=== PATIENT | female | born 1965 | race Caucasian/White ===

== ENCOUNTER → 2018-06-28 13:20 | Outpatient (CLI) | payer OTHER, SELFPAY ==
[2018-06-28 10:17] VITALS: BMI 37.3
== END ==
PROVIDERS: Referring Provider Physician Assistant; Visit Provider Physician Assistant
DX: N61.1 Abscess of the breast and nipple (principal)
CPT/HCPCS: 87070; 87075; 87077; 87205

== ENCOUNTER → 2018-07-13 14:04 | Outpatient (CLI) | payer OTHER, SELFPAY ==
[2018-06-28 10:17] VITALS: BMI 37.3
--- NOTE | 2018-07-13 14:12 | BI_ITS ---
MAMMOGRAPHY - BILATERAL DIAGNOSTIC REASON FOR EXAM: Female, 53 years old. History of a left abscess/infection following a prior needle biopsy. PERTINENT HISTORY: Non-contributory. TECHNIQUE: Digital bilateral breast elian (3D mammographic acquisition) in the CC and MLO projections. 2-D mediolateral oblique (MLO) and craniocaudad (CC) views of both breasts were obtained. CAD: Full Field Digital Mammography with Computer Added Detection was performed. COMPARISON: Comparison is made with prior outside examination dated July 13, 2017. FINDINGS: Breast Composition: The breasts are heterogeneously dense, which may obscure small masses. There are no dominant masses or suspicious calcifications. A tissue clip marker is seen in the retroareolar region of the left breast. At that site, there is evidence of the soft tissue swelling of the areola and surrounding skin. Clinical correlation is recommended. Stable left axillary lymph node with a fatty hilum. No other significant abnormalities are identified. BI/DIAG MAMM W/CAD, BILAT IMPRESSION: The nodule is evidence of thickening of the areolar complex and surrounding skin. Correlation with ultrasound is recommended. ASSESSMENT CATEGORY: BIRADS Category 0: Incomplete. Need additional imaging evaluation. A letter regarding these results will be sent to the patient by the facility within 30 days. Approximately 10% of breast cancers are not detected by mammography. A normal mammogram should not delay biopsy of a clinically suspicious abnormality. Electronically Signed: Hever Tatum MD at 15:43 EST Tel [phone], Service support ,
--- NOTE | 2018-07-13 14:13 | US_ITS ---
STUDY: ULTRASOUND BREAST - LEFT REASON FOR EXAM: Female, 53 years old. Palpable lump left breast. History of infection and prior drainage. TECHNIQUE: Axial and longitudinal images of the LEFT breast were performed with a high resolution ultrasound transducer. COMPARISON: Comparison is made with prior mammogram done earlier in the day. FINDINGS: LEFT Breast: There is a 3.5 mm x 3.3 mm x 1 mm area of thickening just inferior to the nipple. This corresponds to the mammographic abnormality. This may represent a focal area of edema. A biopsy may be indicated for further evaluation. US/Breast Limited Unilateral IMPRESSION: Focal area of thickening just inferior to the nipple corresponding to the palpable abnormality and sonographic abnormality. Tissue sampling is recommended. ASSESSMENT CATEGORY: BIRADS Category 2: Benign. A letter regarding these results will be sent to the patient by the facility within 30 days. Electronically Signed: Hever Tatum MD at 15:55 EST Tel [phone], Service support ,
== END ==
PROVIDERS: Referring Provider Obstetrics & Gynecology; Visit Provider Obstetrics & Gynecology
DX: N63.42 Unspecified lump in left breast, subareolar (principal)
CPT/HCPCS: 76642; 77062; 77066; G0279

== ENCOUNTER → 2018-08-08 13:33 | Outpatient (CLI) | payer OTHER, SELFPAY ==
[2018-08-02 13:22] VITALS: BMI 37.3
--- NOTE | 2018-08-08 | BRBX_PTH ---
PATIENT: AYDEE BISHOP LOC: [facility] U#:[id number] AGE/SX: 59/F ROOM: RE08/08/[address]: Dr. Guanako Reddy MD : 1965 BED: DIS: SPEC #: [id number] RECD: 08/08/18 14:50 STATUS: IAINSarahi [place] #: [id number] KATERINA: 08/08/18 00:[address]: Guanako Reddy DEPT: SURGICAL PATHOLOGY RECD BY: Elieser Lomeli ENTERED: 08/08/18 14:51 SP TYPE: BREAST BX OTHR DR: No Primary Care Phys Tissues: Left breast, NOS Procedures: Surgery Specimen Level IV HEADER OPERATION: Left breast biopsy PRE-OP DIAGNOSIS: Breast nodule / thickening TISSUE SUBMITTED: Skin thickening 6 o'clock left breast status post infection ISCHEMIC TIME: 1 minute FIXATION TIME: 5.5 hours MICROSCOPIC DIAGNOSIS Left breast, skin thickening 6 o'clock, core biopsy: Fragments of benign breast tissue with focal dense fibrosis and periductal chronic inflammation. Negative for atypia or malignancy. WES:pilar 08/09/18 COMMENT Correlation with clinical findings and appropriate follow up are necessary. MICROSCOPIC DESCRIPTION Slides are reviewed. GROSS DESCRIPTION Received in fixative is one container labeled with the patient's name and designated left breast. The specimen consists of multiple elongated fragments of inman-yellow fibroadipose tissue that in aggregate measure 1.5 x 0.7 x 0.1 cm. The entire specimen is submitted in one cassette. / WES:pilar 08/08/18 TC:5 CPT: 56731
--- NOTE | 2018-08-08 13:37 | US_ITS ---
STUDY: ULTRASOUND BREAST - LEFT REASON FOR EXAM: Female, 53 years old. Ultrasound guided left breast biopsy. TECHNIQUE: Axial and longitudinal images of the LEFT breast were performed with a high resolution ultrasound transducer. COMPARISON: Comparison is made with prior ultrasound of the left breast dated July 13, 2018. FINDINGS: LEFT Breast: Under direct sonographic guidance, the surgeon performed 4 core biopsies of the soft tissue density just deep to the skin at the 6:00 position of the breast. US/US Breast Biopsy 1st Lesion IMPRESSION: Successful core biopsy of the soft tissue density at the 6:00 position the breast just inferior to the nipple. ASSESSMENT CATEGORY: BIRADS Category 4: Suspicious - Biopsy Should Be Considered. A letter regarding these results will be sent to the patient by the facility within 30 days. Electronically Signed: Hever Tatum MD at 14:57 EST Tel [phone], Service support ,
== END ==
PROVIDERS: Referring Provider Surgery; Visit Provider Surgery
DX: N63.20 Unspecified lump in the left breast, unspecified quadrant (principal)
CPT/HCPCS: 19083; 88305

== ENCOUNTER → 2018-09-12 09:37 | Outpatient (CLI) | payer OTHER, SELFPAY ==
[2018-08-02 13:22] VITALS: BMI 37.3
[2018-09-15 12:30] LABS: HPV HC, High Risk Negative (Negative)
== END ==
PROVIDERS: Visit Provider Obstetrics & Gynecology
DX: Z12.4 Encounter for screening for malignant neoplasm of cervix (principal)
CPT/HCPCS: 87624; 88175; G0145

== ENCOUNTER → 2021-01-16 10:58 | Outpatient (CLI) | payer OTHER, SELFPAY ==
[2018-08-02 13:22] VITALS: BMI 37.3
--- NOTE | 2021-01-16 11:01 | BI_ITS ---
MAMMOGRAPHY - BILATERAL SCREENING 3-D TOMOSYNTHESIS REASON FOR EXAM: Female, 55 years old. SCREENING PERTINENT HISTORY: No significant family history. TECHNIQUE: 2-D mammograms and 3-D Tomosynthesis of the breast (s) were performed. CAD was performed. COMPARISON: 07/13/2018. FINDINGS: The breast composition is of heterogeneous fibroglandular tissue There is metallic clip behind the aorta in the left breast due to previous biopsy.. No dense spiculated masses or suspicious microcalcifications are identified. No architectural distortion is identified. There is no skin thickening or nipple retraction. There is intramammary lymph node upper outer quadrant of the left breast that showed significant interval decrease in size. There has been no significant change since the prior study of 07/13/2018. BI/SCRN MAMM (CAD)W/JAIDEN BILAT IMPRESSION: No mammographic signs of malignancy. Routine yearly mammograms recommended. ASSESSMENT CATEGORY: BIRADS Category 1: Negative. A letter regarding these results will be sent to the patient by the facility within 30 days. FOLLOW UP RECOMMENDATION: Yearly follow up mammogram recommended. (A) Approximately 10% of breast cancers are not detected by mammography. A normal mammogram should not delay biopsy of a clinically suspicious abnormality. Electronically Signed: Josef Webster, at 14:18 EDT Tel , Service support ,
== END ==
PROVIDERS: Referring Provider Family Medicine; Visit Provider Family Medicine
DX: Z12.31 Encounter for screening mammogram for malignant neoplasm of breast (principal)
CPT/HCPCS: 77063; 77067

== ENCOUNTER → 2022-02-25 | Outpatient (CLI) | payer OTHER, SELFPAY ==
--- NOTE | 2022-02-25 12:18 | BI_ITS ---
MAMMOGRAPHY - BILATERAL SCREENING 3-D TOMOSYNTHESIS REASON FOR EXAM: Female, 56 years old. Routine screening PERTINENT HISTORY: No significant family history. TECHNIQUE: 2-D mammograms and 3-D Tomosynthesis of the breast (s) were performed. CAD was performed. COMPARISON: 01/16/2021 FINDINGS: The breast composition is composed of scattered fibroglandular density. Scattered benign calcifications are seen. No dense spiculated masses or suspicious microcalcifications are identified. No architectural distortion is identified. There is no skin thickening or retraction. There has been no significant change since the prior study. BI/SCRN MAMM (CAD)W/JAIDEN BILAT IMPRESSION: No mammographic signs of malignancy. Routine yearly mammograms recommended. ASSESSMENT CATEGORY: BIRADS Category 2: Benign. A letter regarding these results will be sent to the patient by the facility within 30 days. FOLLOW UP RECOMMENDATION: Yearly follow up mammogram recommended. (A) Approximately 10% of breast cancers are not detected by mammography. A normal mammogram should not delay biopsy of a clinically suspicious abnormality. Electronically Signed: Jacob Holm MD at 12:42 EDT ,
== END | disposition home or self-care (01) ==
LOC: OPBI 12:15
PROVIDERS: Referring Provider Family Medicine; Visit Provider Family Medicine
DX: Z12.31 Encounter for screening mammogram for malignant neoplasm of breast (principal)
CPT/HCPCS: 77063; 77067